=== PATIENT | female | born 1975 | race African-American/Black ===

== ENCOUNTER 2016-11-28 22:01 | Emergency (ER) | payer MEDICAID ==
[~2016-11-28] VITALS: Ht 152.4 cm; Wt 76.8 kg
[~2016-11-28 22:01] MED LIST: 1-ME1LIQ PO; HYDR-3534 PO; METH750T2 PO; METO50TA PO
[2016-11-28 22:28] VITALS: BP 144/101; PULSE 117; RESP 20; TEMP 99.3; O2SAT 100
[2016-11-28 22:37] VITALS: BP 144/101; PULSE 115; RESP 18; TEMP 99.3; O2SAT 100
[2016-11-28] MEDS ORDERED: SODIUM CHLORIDE 0.9% FLUSH 5 ML FLUSH IVF PRN (22:45)
--- NOTE | 2016-11-28 22:46 | PD ---
HPI Chief Complaint: Cold / Flu Symptoms Time Seen by Provider: 22:35 Travel History International Travel<30 days: No Contact w/Intl Traveler<30days: No Traveled to known affect area: No History of Present Illness HPI The patient is a 41-year-old female that complains of left-sided sharp, pleuritic chest pain, generalized myalgias, global headache and nonproductive cough for 3 days. She denies any sore throat or ear pain. She has had nausea and vomiting without diarrhea. She states she has had a partial hysterectomy and cannot be . PFSH Past Medical History Asthma: Yes Blood Disorders: No Cardiovascular Problems: Yes Diabetes: No Diminished Hearing: No Hypertension: Yes Reproductive: Yes (ENDOMETRIOSIS) Respiratory: Yes Immunizations Current: No Pneumonia: Yes ?: Not Menopausal: Yes : 3 Para: 3 Ovarian Cysts: Yes Dilation and Curettage (D&C): Yes Tubal Ligation: Yes Past Surgical History Section: Yes (X 2) Gynecologic Surgery: Yes (OVARIAN CYST REMOVED) Hysterectomy: Yes Social History Alcohol Use: No Tobacco Use: No Substance Use: No Allergies-Medications (Allergen,Severity, Reaction): Coded Allergies: Ibuprofen (Unverified Allergy, Intermediate, RASH/HIVES, 11/28/16) Reported Meds & Prescriptions Reported Meds & Active Scripts Active Reported Amlodipine-Atorvastatin 10-10 Mg Tab 1 Tab PO DAILY Metoprolol Tartrate 50 Mg Tab 50 Mg PO BID Review of Systems Except as stated in HPI: all other systems reviewed are Neg Physical Exam Narrative GENERAL: The patient is alert, moderately dehydrated appearing in no respiratory distress. Her vital signs show temperature 99.3 with a heart rate of 117 and blood pressure 144/101. Oximetry is 100% and respirations are 20. SKIN: Warm and dry. No skin rashes noted. HEAD: Atraumatic. Normocephalic. EYES: Pupils equal and round. No scleral icterus. No injection or drainage. ENT: No nasal bleeding or discharge. Mucous membranes pink and moist. NECK: Trachea midline. No JVD. CARDIOVASCULAR: Regular rate and rhythm. No murmur appreciated. RESPIRATORY: No accessory muscle use. Clear to auscultation. Breath sounds equal bilaterally. GASTROINTESTINAL: Abdomen soft, non-tender, nondistended. Hepatic and splenic margins not palpable. No guarding or rebound is present. MUSCULOSKELETAL: No obvious deformities. No clubbing. No cyanosis. No edema. NEUROLOGICAL: Awake and alert. No obvious cranial nerve deficits. Motor grossly within normal limits. Normal speech. PSYCHIATRIC: Appropriate mood and affect; insight and judgment normal. Data Data Last Documented VS Vital Signs Date Time Temp Pulse Resp B/P Pulse Ox O2 Delivery O2 Flow Rate FiO2 11/28/16 23:43 109 18 142/87 97 Room Air 11/28/16 23:11 97.7 Orders Basic Metabolic Panel (Bmp) (11/28/16 22:35) Complete Blood Count With Diff (11/28/16 22:35) Influenzae A/B Antigen (11/28/16 22:35) Chest, Pa & Lat (11/28/16 22:35) Sodium Chloride 0.9% Flush (Ns Flush) (11/28/16 22:45) Urinalysis - C+S If Indicated (11/28/16 22:37) Ondansetron Inj (Zofran Inj) (11/28/16 23:15) Labs Laboratory Tests Test 11/28/16 23:05 White Blood Count 7.6 TH/MM3 Red Blood Count 4.55 MIL/MM3 Hemoglobin 13.6 GM/DL Hematocrit 39.6 % Mean Corpuscular Volume 86.9 FL Mean Corpuscular Hemoglobin 30.0 PG Mean Corpuscular Hemoglobin 34.5 % Concent Red Cell Distribution Width 13.0 % Platelet Count 271 TH/MM3 Mean Platelet Volume 7.9 FL Neutrophils (%) (Auto) 73.5 % Lymphocytes (%) (Auto) 12.2 % Monocytes (%) (Auto) 6.7 % Eosinophils (%) (Auto) 3.8 % Basophils (%) (Auto) 3.8 % Neutrophils # (Auto) 5.6 TH/MM3 Lymphocytes # (Auto) 0.9 TH/MM3 Monocytes # (Auto) 0.5 TH/MM3 Eosinophils # (Auto) 0.3 TH/MM3 Basophils # (Auto) 0.3 TH/MM3 CBC Comment DIFF FINAL Differential Comment Urine Color STRAW Urine Turbidity CLEAR Urine pH 6.0 Urine Specific [place] 1.007 Urine Protein NEG mg/dL Urine Glucose (UA) NEG mg/dL Urine Ketones NEG mg/dL Urine Occult Blood SMALL Urine Nitrite NEG Urine Bilirubin NEG Urine Leukocyte Esterase NEG Urine RBC 0-3 /hpf Urine Squamous Epithelial 0-5 /hpf Cells Microscopic Urinalysis Comment CULT NOT INDICATED Sodium Level 142 MEQ/L Potassium Level 4.2 MEQ/L Chloride Level 105 MEQ/L Carbon Dioxide Level 27.7 MEQ/L Anion Gap 9 MEQ/L Blood Urea Nitrogen 13 MG/DL Creatinine 0.84 MG/DL Estimat Glomerular Filtration 91 ML/MIN Rate Random Glucose 105 MG/DL Calcium Level 8.8 MG/DL MDM Medical Decision Making Medical Screen Exam Complete: Yes Emergency Medical Condition: Yes Medical Record Reviewed: Yes Interpretation(s) The influenza A/B antigen is negative for flu a and flu B antigen. The urinalysis is normal and culture is not indicated. The chest x-ray shows no acute disease. The CBC is normal except for 74% neutrophils. The basic metabolic profile is normal. Differential Diagnosis Viral syndrome, flu syndrome, pneumonia, bronchitis, urinary tract infection, electrolyte disorder, anemia, renal insufficiency, hypo-/hyperglycemia Narrative Course The patient appears to have a viral syndrome. Plan: The patient be given Motrin 600 mg 3 times daily and a 6 day work excuse. She is to follow-up with her primary care physician. Diagnosis Primary Impression: Viral syndrome Additional Instructions: Take the Motrin regularly, 1 tablet 3 times daily for the headache and aches and pains and fever. Follow-up this week with your primary care physician. Med/Other Pt SpecificInfo: Prescription(s) given Scripts Ibuprofen 600 Mg [id number] Mg PO TID #45 TAB Ref 0 Prov:Jesus Briseno MD 11/28/16 Disposition: 01 DISCHARGE HOME Condition: Stable Jesus Briseno MD Nov 28, 2016 22:46
--- NOTE | 2016-11-28 23:01 | RADHPO ---
EXAM DATE/TIME: 11/28/2016 22:45 [facility] COMPARISON: No previous studies available for comparison. INDICATIONS : Cough and shortness of breath. MEDICAL HISTORY : Hypertension. Asthma. SURGICAL HISTORY : None. ENCOUNTER: Initial ACUITY: 1 day PAIN SCORE: 0/10 LOCATION: Bilateral chest FINDINGS: PA and lateral views of the chest demonstrate the lungs to be symmetrically aerated without evidence of mass, infiltrate or effusion. The cardiomediastinal contours are unremarkable. Osseous structure s are intact. CONCLUSION: No acute disease. Carlos Campbell MD on November 28, 2016 at 23:00 Board Certified Radiologist. This report was verified electronically.
[2016-11-28 23:11] VITALS: TEMP 97.7
[2016-11-28] MEDS ORDERED: ONDANSETRON HCL 4 MG/2 ML VIAL IV ONE (23:15)
[2016-11-28 23:20] LABS: AUTOMATED NEUTROPHIL # 5.6 TH/MM3 (1.8-7.7); BASOPHIL # 0.3 TH/MM3 (0-0.2); BASOPHIL % 3.8 % (0.0-2.0); EOSINOPHIL # 0.3 TH/MM3 (0-0.4); EOSINOPHIL % 3.8 % (0.0-4.0); HEMATOCRIT 39.6 % (35.0-46.0); HEMO FLAGS DIFF FINAL; LYMPH % 12.2 % (9.0-44.0); LYMPHOCYTE # 0.9 TH/MM3 (1.0-4.8); MEAN CELL VOLUME 86.9 FL (80.0-100.0); MEAN CORPUSCULAR HGB CONC 34.5 % (32.0-36.0); MONO % 6.7 % (0.0-8.0); NEUT % 73.5 % (16.0-70.0); PLATELET COUNT 271 TH/MM3 (150-450); RED BLOOD COUNT 4.55 MIL/MM3 (4.00-5.30); WHITE BLOOD COUNT 7.6 TH/MM3 (4.0-11.0)
[2016-11-28 23:21] LABS: BLOOD, URINE SMALL (NEG); GLUCOSE,URINE NEG (NEG); KETONE, URINE NEG (NEG); NITRITE,URINE NEG (NEG)
[2016-11-28 23:27] LABS: BICARBONATE 27.7 MEQ/L (21.0-32.0)
[2016-11-28 23:31] LABS: URINE COLOR STRAW (YELLW/STRAW)
[2016-11-28] MEDS ORDERED: METO50TA PO (23:32)
[2016-11-28] MEDS ORDERED: AMLO1TAB34 PO (23:32)
[2016-11-28 23:33] LABS: COMMENT (UR) CULT NOT INDICATED; CULTURE IF INDICATED CULT NOT INDICATED; RBC, URINE 0-3 /hpf (0-3); SQUAMOUS EPITHELIAL CELL URINE 0-5 /hpf (0-5)
[2016-11-28 23:35] LABS: POTASSIUM 4.2 MEQ/L (3.5-5.1)
[2016-11-28 23:43] VITALS: BP 142/87; PULSE 109; RESP 18; O2SAT 97
[2016-11-28] MEDS ORDERED: IBUP-232 PO (23:55)
== END 2016-11-29 00:11 | disposition home or self-care (01) ==
LOC: PHED 22:01
DX: B34.9 Viral infection, unspecified (principal); I10 Essential (primary) hypertension
CPT/HCPCS: 71020; 80048; 81001; 85025; 87804; 96374; 99284; J2405

== ENCOUNTER 2016-12-03 17:42 | Emergency (ER) | payer MEDICAID ==
[~2016-12-03] VITALS: Ht 152.4 cm; Wt 77.0 kg
[~2016-12-03 17:42] MED LIST changes: -1-ME1LIQ PO; +AMLO1TAB34 PO; -HYDR-3534 PO; +IBUP-232 PO; -METH750T2 PO
[2016-12-03 17:44] VITALS: BP 143/98; PULSE 111; RESP 16; TEMP 98.8; O2SAT 100
[2016-12-03] MEDS ORDERED: SODIUM CHLOR 0.9% 1000 ML INJ 1,000 ML IV SCH (18:40)
[2016-12-03] MEDS ORDERED: FAMOTIDINE 20 MG/2 ML VIAL IV PUSH ONE (18:45)
--- NOTE | 2016-12-03 18:45 | PD ---
HPI Chief Complaint: Pain: Acute or Chronic Time Seen by Provider: 18:41 Travel History International Travel<30 days: No Contact w/Intl Traveler<30days: No Traveled to known affect area: No History of Present Illness HPI Patient is a 41-year-old female with chief complaint of ENT/URI symptoms with nausea, vomiting and muscle aches. She states that she was seen 5 days ago at the onset of symptoms and was diagnosed with viral syndrome. She states that the sore throat has resolved and she has intermittent nasal congestion and a dry cough, occasional white sputum production. She states fever broke 2 days ago and she denies chest pain, wheezing and dyspnea. She states that she middle intermittently has diffuse abdominal discomfort and has had nausea and vomiting, 9 episodes since yesterday. No hematemesis. She denies constipation or diarrhea. She states she has had reduced oral intake secondary to nausea. She states she has had some diffuse muscle aches, worse in her thighs. She denies weakness and paresthesias. She endorses fatigue. Denies secondary to hysterectomy. PFSH Past Medical History Hx Anticoagulant Therapy: No Asthma: Yes Blood Disorders: No Cardiovascular Problems: Yes (HTN) Diabetes: No Diminished Hearing: No Hypertension: Yes Reproductive: Yes (ENDOMETRIOSIS) Respiratory: Yes Immunizations Current: Yes Pneumonia: Yes Influenza Vaccination: No ?: Not Menopausal: Yes : 3 Para: 3 Ovarian Cysts: Yes Dilation and Curettage (D&C): Yes Tubal Ligation: Yes Past Surgical History Section: Yes (X 2) Gynecologic Surgery: Yes (OVARIAN CYST REMOVED) Hysterectomy: Yes Social History Alcohol Use: No Tobacco Use: No Substance Use: No Allergies-Medications (Allergen,Severity, Reaction): Coded Allergies: Ibuprofen (Unverified Allergy, Intermediate, RASH/HIVES, 12/03/16) Reported Meds & Prescriptions Reported Meds & Active Scripts Active Zofran Odt (Ondansetron Odt) 4 Mg Tab 4 Mg SL Q8HR PRN Ibuprofen 600 Mg Tab 600 Mg PO TID Reported Metoprolol Tartrate 50 Mg Tab 50 Mg PO BID Amlodipine-Atorvastatin 10-10 Mg Tab 1 Tab PO DAILY Review of Systems Except as stated in HPI: all other systems reviewed are Neg Physical Exam Narrative GENERAL: Well-developed and well-nourished adult female in no acute distress. SKIN: Warm and dry. Slightly decreased turgor without tenting. HEAD: Normocephalic and atraumatic. EYES: PERRL bilaterally, 5mm. EOMI bilaterally. No injection or icterus present. No proptosis. Lids without edema or erythema. ENT: Nasal mucosa erythematous and edematous without discharge, septum intact and midline. Buccal mucosa pink and slightly dry. Oropharynx free of erythema, tonsillar hypertrophy, masses, swelling, asymmetry and exudates. Uvula midline and airway patent. NECK: Supple, no meningeal signs. Trachea midline, no JVD. No cervical or facial lymphadenopathy. CARDIOVASCULAR: Mild tachycardia rate 108 with regular rhythm without murmurs, rubs, clicks or gallops. Radial and posterior tibial pulses 2+ bilaterally. No pedal edema. RESPIRATORY: Clear to auscultation bilaterally with symmetrical rise and fall, no distress or use of accessory muscles. GASTROINTESTINAL: Non-tender, non-distended. Normal bowel sounds all 4 quadrants. No masses or organomegaly present. MUSCULOSKELETAL: No tenderness or palpation of the bilateral shoulders, arms, forearms, thighs and calves. No gait disturbances. Patient freely moving all four extremities spontaneously. Extremities without clubbing, cyanosis, or edema. No obvious deformities. NEUROLOGIC: CN II-XII grossly intact. Awake and alert. Motor grossly within normal limits. Normal speech. PSYCHIATRIC: Appropriate mood and affect; insight and judgment normal. Data Data Last Documented VS Vital Signs Date Time Temp Pulse Resp B/P Pulse Ox O2 Delivery O2 Flow Rate FiO2 12/03/16 18:57 18 98 Room Air 12/03/16 17:44 98.8 111 143/98 Orders Beta Hcg (Quant/Titer) (12/03/16 18:40) Complete Blood Count With Diff (12/03/16 18:40) Comprehensive Metabolic Panel (12/03/16 18:40) Lipase (12/03/16 18:40) Urinalysis - C+S If Indicated (12/03/16 18:40) Iv Access Insert/Monitor (12/03/16 18:40) Ecg Monitoring (12/03/16 18:40) Oximetry (12/03/16 18:40) Sodium Chlor 0.9% 1000 Ml Inj (Ns 1000 M (12/03/16 18:40) Famotidine Inj (Pepcid Inj) (12/03/16 18:45) Creatine Kinase (Cpk) (12/03/16 18:40) Magnesium (Mg) (12/03/16 18:40) CKMB (12/03/16 18:50) CKMB% (12/03/16 18:50) Calcium Carbonate Chew (Tums Chew) (12/03/16 19:45) Labs Laboratory Tests Test 12/03/16 12/03/16 18:45 18:50 Urine Color YELLOW Urine Turbidity CLEAR Urine pH 5.5 Urine Specific [place] 1.030 Urine Protein NEG mg/dL Urine Glucose (UA) NEG mg/dL Urine Ketones NEG mg/dL Urine Occult Blood MOD Urine Nitrite NEG Urine Bilirubin NEG Urine Leukocyte Esterase NEG Urine RBC 3-5 /hpf Urine WBC 0-2 /hpf Urine Squamous Epithelial 6-8 /hpf Cells Urine Bacteria NONE /hpf Microscopic Urinalysis Comment CULT NOT INDICATED White Blood Count 7.2 TH/MM3 Red Blood Count 4.99 MIL/MM3 Hemoglobin 14.4 GM/DL Hematocrit 44.1 % Mean Corpuscular Volume 88.3 FL Mean Corpuscular Hemoglobin 28.9 PG Mean Corpuscular Hemoglobin 32.8 % Concent Red Cell Distribution Width 13.3 % Platelet Count 260 TH/MM3 Mean Platelet Volume 7.7 FL Neutrophils (%) (Auto) 37.2 % Lymphocytes (%) (Auto) 46.3 % Monocytes (%) (Auto) 7.8 % Eosinophils (%) (Auto) 7.8 % Basophils (%) (Auto) 0.9 % Neutrophils # (Auto) 2.7 TH/MM3 Lymphocytes # (Auto) 3.2 TH/MM3 Monocytes # (Auto) 0.6 TH/MM3 Eosinophils # (Auto) 0.6 TH/MM3 Basophils # (Auto) 0.1 TH/MM3 CBC Comment DIFF FINAL Differential Comment Sodium Level 144 MEQ/L Potassium Level 3.7 MEQ/L Chloride Level 107 MEQ/L Carbon Dioxide Level 29.2 MEQ/L Anion Gap 8 MEQ/L Blood Urea Nitrogen 20 MG/DL Creatinine 0.88 MG/DL Estimat Glomerular Filtration 86 ML/MIN Rate Random Glucose 101 MG/DL Calcium Level 8.3 MG/DL Magnesium Level 2.0 MG/DL Total Bilirubin 0.2 MG/DL Aspartate Amino Transf 17 U/L (AST/SGOT) Alanine Aminotransferase 17 U/L (ALT/SGPT) Alkaline Phosphatase 85 U/L Total Creatine Kinase 274 U/L Creatine Kinase MB 2.5 NG/ML Creatine Kinase MB % 0.9 % Total Protein 6.7 GM/DL Albumin 2.9 GM/DL Lipase 240 U/L Human Chorionic Gonadotropin, LESS THAN 1 Quant MIU/ML [facility] Medical Decision Making Medical Screen Exam Complete: Yes Emergency Medical Condition: Yes Differential Diagnosis Dehydration versus electrolyte disturbance versus viral syndrome versus rhabdomyolysis Narrative Course Patient is a 41-year-old afebrile nontoxic-appearing female with continuing nausea, vomiting and increasing myalgias likely secondary to viral syndrome. Her ENT/URI symptoms have been improving. Lungs are clear to auscultation and there is no evidence of bacterial foci on exam. Belly is benign and she has no diarrhea. Reports significant episodes of emesis since yesterday and reduced oral intake. She appears slightly volume depleted on exam. Her muscle aches are likely secondary to both the viral syndrome and possible dehydration and electrolyte disturbance. Patient was given Zofran, H2 antagonist, 1 L normal saline bolus ordered labs including magnesium and CPK. Patient reports feeling much better and resolution of her nausea. CBC shows WBC 7.2 with a mild increase in her lymphocytes, likely secondary to viral syndrome. Urinalysis shows moderate blood with 6-8 epithelial cells. White count shows BUN 20, creatinine 0.88, calcium 8.3, CK 274, albumin 2.9. Patient was given calcium carbonate 1 g chews. Do not believe this slight greasing calcium because her myalgias. There likely secondary to the viral syndrome. She is afebrile, nontoxic reports improving ENT and respiratory symptoms will encourage fluids and give Zofran and believe this will likely resolve in 2-3 days.See discharge paperwork for further instructions. The plan was discussed with the patient who acknowledged their understanding and agreement. Reinforced the follow-up with primary care is critically important. Patient instructed on emergent conditions that should prompt return to ED. Diagnosis Primary Impression: Viral syndrome Additional Impression: Myalgia Patient Instructions: General Instructions, Viral Syndrome (ED) Additional Instructions: Take medication as prescribed OTC Mucinex, cough suppressants, and decongestants as needed OTC Tylenol or Ibuprofen for fever and discomfort Drink lots of fluid to help clear mucous/drainage and stay hydrated Follow up with PCP in 2 days Return to the ED for any acute worsening of symptoms Med/Other Pt SpecificInfo: Prescription(s) given Scripts Ondansetron Odt (Zofran Odt)4 Mg Tab4 Mg SL Q8HR PRN (Nausea/Vomiting) #12 TAB Prov:Harley Charles MD 12/03/16 Disposition: 01 DISCHARGE HOME Condition: Stable Damir Daniel III Dec 03, 2016 18:45
[2016-12-03 18:57] VITALS: RESP 18; O2SAT 98
[2016-12-03 19:02] LABS: GLUCOSE,URINE NEG (NEG); KETONE, URINE NEG (NEG); NITRITE,URINE NEG (NEG); PH, URINE 5.5 (5.0-8.5)
[2016-12-03 19:03] LABS: AUTOMATED NEUTROPHIL # 2.7 TH/MM3 (1.8-7.7); BASOPHIL # 0.1 TH/MM3 (0-0.2); BASOPHIL % 0.9 % (0.0-2.0); EOSINOPHIL # 0.6 TH/MM3 (0-0.4); EOSINOPHIL % 7.8 % (0.0-4.0); HEMATOCRIT 44.1 % (35.0-46.0); HEMO FLAGS DIFF FINAL; LYMPH % 46.3 % (9.0-44.0); LYMPHOCYTE # 3.2 TH/MM3 (1.0-4.8); MEAN CELL VOLUME 88.3 FL (80.0-100.0); MEAN CORPUSCULAR HEMOGLOBIN 28.9 PG (27.0-34.0); MEAN CORPUSCULAR HGB CONC 32.8 % (32.0-36.0); MONO % 7.8 % (0.0-8.0); NEUT % 37.2 % (16.0-70.0); PLATELET COUNT 260 TH/MM3 (150-450); RED BLOOD COUNT 4.99 MIL/MM3 (4.00-5.30); RED CELL DISTRIBUTION WIDTH 13.3 % (11.6-17.2); WHITE BLOOD COUNT 7.2 TH/MM3 (4.0-11.0)
[2016-12-03 19:08] LABS: BLOOD, URINE MOD (NEG); URINE COLOR YELLOW (YELLW/STRAW)
[2016-12-03 19:10] LABS: COMMENT (UR) CULT NOT INDICATED; CULTURE IF INDICATED CULT NOT INDICATED; WBC, URINE 0-2 /hpf (0-5)
[2016-12-03 19:16] LABS: CHLORIDE 107 MEQ/L (98-107); POTASSIUM 3.7 MEQ/L (3.5-5.1); SODIUM (NA) 144 MEQ/L (136-145)
[2016-12-03 19:20] LABS: ANION GAP 8 MEQ/L (5-15); BICARBONATE 29.2 MEQ/L (21.0-32.0); BLOOD UREA NITROGEN 20 MG/DL (7-18)
[2016-12-03 19:23] LABS: ALT (GPT) 17 U/L (10-53); AST (GOT) 17 U/L (15-37); GLOMERULAR FILTRATION RATE 86 ML/MIN (>89)
[2016-12-03 19:24] LABS: TOTAL BILIRUBIN ADULT 0.2 MG/DL (0.2-1.0)
[2016-12-03 19:26] LABS: ALKALINE PHOSPHATASE 85 U/L (45-117); CREATINE KINASE 274 U/L (26-192)
[2016-12-03 19:28] LABS: BETA HCG QUANT LESS THAN 1 MIU/ML (0-5)
[2016-12-03 19:38] LABS: CKMB 2.5 NG/ML (0.5-3.6)
[2016-12-03] MEDS ORDERED: ZOFR4TAB3 SL (19:39)
[2016-12-03] MEDS ORDERED: CALCIUM CARBONATE 500 MG CHEWABLE TAB CHEW ONE (19:45)
== END 2016-12-03 20:18 | disposition home or self-care (01) ==
LOC: PHEFT 17:42
DX: B34.9 Viral infection, unspecified (principal); M79.1 Myalgia; J45.909 Unspecified asthma, uncomplicated; I10 Essential (primary) hypertension
CPT/HCPCS: 80053; 81001; 82550; 82552; 83690; 83735; 84702; 85025; 96361; 96374; 99283; J7030

== ENCOUNTER 2017-02-01 00:48 | Observation (INO) | payer SELFPAY ==
[2017-02-01] VITALS (7 sets, daily range): BP systolic 146–155; BP diastolic 88–102; PULSE 75–89; RESP 15–18; TEMP 98.2; O2SAT 98–99
[~2017-02-01 00:48] MED LIST changes: +ZOFR4TAB3 SL
[2017-02-01 02:18] LABS: AUTOMATED NEUTROPHIL # 3.2 TH/MM3 (1.8-7.7); BASOPHIL # 0.1 TH/MM3 (0-0.2); BASOPHIL % 0.7 % (0.0-2.0); EOSINOPHIL # 0.6 TH/MM3 (0-0.4); EOSINOPHIL % 7.4 % (0.0-4.0); HEMATOCRIT 39.4 % (35.0-46.0); HEMO FLAGS DIFF FINAL; LYMPH % 43.8 % (9.0-44.0); LYMPHOCYTE # 3.4 TH/MM3 (1.0-4.8); MEAN CELL VOLUME 88.1 FL (80.0-100.0); MEAN CORPUSCULAR HEMOGLOBIN 29.4 PG (27.0-34.0); MEAN CORPUSCULAR HGB CONC 33.4 % (32.0-36.0); MONO % 6.7 % (0.0-8.0); NEUT % 41.4 % (16.0-70.0); PLATELET COUNT 278 TH/MM3 (150-450); RED BLOOD COUNT 4.48 MIL/MM3 (4.00-5.30); RED CELL DISTRIBUTION WIDTH 13.7 % (11.6-17.2); WHITE BLOOD COUNT 7.8 TH/MM3 (4.0-11.0)
[2017-02-01 02:22] LABS: BLOOD, URINE SMALL (NEG); GLUCOSE,URINE NEG (NEG); KETONE, URINE NEG (NEG); NITRITE,URINE NEG (NEG); PH, URINE 6.5 (5.0-8.5)
[2017-02-01 02:26] LABS: CHLORIDE 107 MEQ/L (98-107); SODIUM (NA) 141 MEQ/L (136-145)
[2017-02-01 02:29] LABS: ANION GAP 8 MEQ/L (5-15); BICARBONATE 26.4 MEQ/L (21.0-32.0)
[2017-02-01 02:30] LABS: BLOOD UREA NITROGEN 20 MG/DL (7-18)
--- NOTE | 2017-02-01 02:31 | PD ---
HPI Chief Complaint: Chest Pain Time Seen by Provider: 02:27 Travel History International Travel<30 days: No Contact w/Intl Traveler<30days: No Traveled to known affect area: No History of Present Illness HPI 41-year-old female presents to the emergency department by private transportation for complaint of headache since 3:30 PM and chest discomfort with tingling in the left upper extremity and left lower extremity intermittently since 11 PM. Patient has history of headaches and history of hypertension. Patient occasionally has chest pain but is simply right-sided. Patient denies known history of CAD or dyslipidemia or diabetes but does have hypertension. Patient has family history of hypertension affecting her sister and her father. Patient denies any upper or lower extremity weakness. Patient denies any injury or fall. Patient states symptoms have improved since arriving to the emergency department. Patient took no medications prior to arrival to the emergency Department. No report of visual disturbance speech disturbance change in mentation palpitations sweats nausea vomiting abdominal pain flank pain or recent febrile illness. Patient denies . Pain 5/10 in intensity. Headache is not sudden onset, worst ever, or thunderclap; no family history of intracerebral hemorrhage or subarachnoid hemorrhage. No injury or fall. No febrile or respiratory illness. PFSH Past Medical History Narrative Medical Asthma hypertension endometriosis D&C tubal ligation and ovarian cysts C- section ovarian cystectomy and hysterectomy no tobacco use; family history hypertension; nursing notes reviewed Hx Anticoagulant Therapy: No Asthma: Yes Blood Disorders: No Cardiovascular Problems: Yes (HTN) Diabetes: No Diminished Hearing: No Hypertension: Yes Reproductive: Yes (ENDOMETRIOSIS) Respiratory: Yes Immunizations Current: Yes Pneumonia: Yes ?: Unknown Menopausal: Yes : 3 Para: 3 Ovarian Cysts: Yes Dilation and Curettage (D&C): Yes Tubal Ligation: Yes Past Surgical History Section: Yes (X 2) Gynecologic Surgery: Yes (OVARIAN CYST REMOVED) Hysterectomy: Yes Social History Alcohol Use: No Tobacco Use: No Substance Use: No Allergies-Medications (Allergen,Severity, Reaction): Coded Allergies: Ibuprofen (Verified Allergy, Intermediate, RASH/HIVES, 02/01/17) Reported Meds & Prescriptions Reported Meds & Active Scripts Active Reported Metoprolol Tartrate 50 Mg Tab 50 Mg PO BID Amlodipine-Atorvastatin 10-10 Mg Tab 1 Tab PO DAILY Review of Systems Except as stated in HPI: all other systems reviewed are Neg General / Constitutional: No: Fever, Chills Eyes: No: Visual changes HENT: Positive: Headaches, No: Neck Stiffness, Neck Pain Cardiovascular: Positive: Chest Pain or Discomfort, No: Diaphoresis, Dyspnea on exertion, Edema Respiratory: No: Cough, Shortness of Breath, Wheezing Gastrointestinal: No: Nausea, Vomiting Genitourinary: No: Dysuria, Flank Pain Musculoskeletal: No: Myalgias, Arthralgias, Limited ROM, Pain Skin: No Rash Neurologic: Positive: Paresthesia (left), No: Weakness, Dizziness, Syncope, Focal Abnormalities, Coordination Problem Psychiatric: Positive: Anxiety Endocrine: No: Heat Intolerance Hematologic/Lymphatic: No: Easy Bruising Physical Exam Narrative GENERAL: Well-developed well-nourished female in no acute distress no respiratory distress; GCS is 15; NIHSS: 0 SKIN: Warm and dry. HEAD: Atraumatic. Normocephalic. EYES: Pupils equal and round. No scleral icterus. No injection or drainage. ENT: No nasal bleeding or discharge. Mucous membranes pink and moist. NECK: Trachea midline. No JVD. Supple no nuchal rigidity no meningismus no Kernig's or Brudzinski. CARDIOVASCULAR: Regular rate and rhythm. RESPIRATORY: No accessory muscle use. Clear to auscultation. Breath sounds equal bilaterally. GASTROINTESTINAL: Abdomen soft, non-tender, nondistended. Hepatic and splenic margins not palpable. MUSCULOSKELETAL: Extremities without clubbing, cyanosis, or edema. No obvious deformities. NEUROLOGICAL: Awake and alert. No obvious cranial nerve deficits. Motor grossly within normal limits. Five out of 5 muscle strength in the arms and legs. No limb ataxia. No pronator drift. DTRs 2+ and symmetric. Sensory exam intact. Normal speech. PSYCHIATRIC: Appropriate mood and affect; insight and judgment normal. Data Data Last Documented VS Vital Signs Date Time Temp Pulse Resp B/P Pulse Ox O2 Delivery O2 Flow Rate FiO2 02/01/17 04:12 78 16 146/94 Room Air 02/01/17 03:30 99 02/01/17 01:00 98.2 Orders Ed Urine Pregnancytest Poc (02/01/17 01:30) Complete Blood Count With Diff (02/01/17 02:06) Comprehensive Metabolic Panel (02/01/17 02:06) Troponin I (02/01/17 02:06) Urinalysis - C+S If Indicated (02/01/17 02:06) Ct Brain W/O Iv Contrast(Rout) (02/01/17 ) Chest, Single Ap (02/01/17 ) Act Partial Throm Time (Ptt) (02/01/17 02:31) Prothrombin Time / Inr (Pt) (02/01/17 02:31) Cta Brain W Iv Contrast W 3d (02/01/17 ) Cta Neck W Iv Contrast W 3d (02/01/17 04:44) Ckmb (Isoenzyme) Profile (02/01/17 04:57) Troponin I (02/01/17 04:57) Iohexol 350 Inj (Omnipaque 350 Inj) (02/01/17 06:06) CKMB (02/01/17 05:25) CKMB% (02/01/17 05:25) Admit Order (Ed Use Only) (02/01/17 ) ^ Saline Lock (02/01/17 06:53) Resp Oxygen Julio C Titrat 1-4 L (02/01/17 ) ^ Notify Dr: Other (02/01/17 06:53) Sodium Chloride 0.9% Flush (Ns Flush) (02/01/17 09:00) Sodium Chloride 0.9% Flush (Ns Flush) (02/01/17 07:00) Activity Bed Rest With Brp (02/01/17 06:53) Vital Signs (Adult) Q4H (02/01/17 06:53) Cardiac Rhythm .As Directed (02/01/17 06:53) ^ Notify Dr: Other .PRN (02/01/17 06:53) ^ Notify Dr. Parameters (02/01/17 06:53) Resp Oxygen Nasal Cannula (02/01/17 ) Ckmb (Isoenzyme) Profile (02/01/17 08:30) Ckmb (Isoenzyme) Profile (02/01/17 11:30) Troponin I (02/01/17 08:30) Troponin I (02/01/17 11:30) Electrocardiogram (02/01/17 08:30) Electrocardiogram (02/01/17 11:30) ^ Obtain (02/01/17 06:53) Sodium Chloride 0.9% Flush (Ns Flush) (02/01/17 07:00) Sodium Chloride 0.9% Flush (Ns Flush) (02/01/17 09:00) Field Human Resources Manager / Telemetry [id number] (02/01/17 06:53) Labs Laboratory Tests Test 02/01/17 02/01/17 02:00 05:25 White Blood Count 7.8 TH/MM3 Red Blood Count 4.48 MIL/MM3 Hemoglobin 13.1 GM/DL Hematocrit 39.4 % Mean Corpuscular Volume 88.1 FL Mean Corpuscular Hemoglobin 29.4 PG Mean Corpuscular Hemoglobin 33.4 % Concent Red Cell Distribution Width 13.7 % Platelet Count 278 TH/MM3 Mean Platelet Volume 8.1 FL Neutrophils (%) (Auto) 41.4 % Lymphocytes (%) (Auto) 43.8 % Monocytes (%) (Auto) 6.7 % Eosinophils (%) (Auto) 7.4 % Basophils (%) (Auto) 0.7 % Neutrophils # (Auto) 3.2 TH/MM3 Lymphocytes # (Auto) 3.4 TH/MM3 Monocytes # (Auto) 0.5 TH/MM3 Eosinophils # (Auto) 0.6 TH/MM3 Basophils # (Auto) 0.1 TH/MM3 CBC Comment DIFF FINAL Differential Comment Prothrombin Time 10.3 SEC Prothromb Time International 0.9 RATIO Ratio Activated Partial 27.7 SEC Thromboplast Time Urine Color STRAW Urine Turbidity CLEAR Urine pH 6.5 Urine Specific [place] 1.010 Urine Protein NEG mg/dL Urine Glucose (UA) NEG mg/dL Urine Ketones NEG mg/dL Urine Occult Blood SMALL Urine Nitrite NEG Urine Bilirubin NEG Urine Leukocyte Esterase NEG Urine RBC 0-3 /hpf Urine Squamous Epithelial 0-5 /hpf Cells Microscopic Urinalysis Comment CULT NOT INDICATED Sodium Level 141 MEQ/L Potassium Level 4.0 MEQ/L Chloride Level 107 MEQ/L Carbon Dioxide Level 26.4 MEQ/L Anion Gap 8 MEQ/L Blood Urea Nitrogen 20 MG/DL Creatinine 0.99 MG/DL Estimat Glomerular Filtration 75 ML/MIN Rate Random Glucose 106 MG/DL Calcium Level 8.7 MG/DL Total Bilirubin 0.2 MG/DL Aspartate Amino Transf 15 U/L (AST/SGOT) Alanine Aminotransferase 23 U/L (ALT/SGPT) Alkaline Phosphatase 119 U/L Troponin I LESS THAN 0.02 LESS THAN 0.02 NG/ML NG/ML Total Protein 7.7 GM/DL Albumin 3.5 GM/DL Total Creatine Kinase 241 U/L Creatine Kinase MB 1.1 NG/ML Creatine Kinase MB % 0.5 % MDM Medical Decision Making Medical Screen Exam Complete: Yes Emergency Medical Condition: Yes Medical Record Reviewed: Yes Interpretation(s) CBC was automated differential: Values in normal range Complete metabolic panel otherwise grossly normal range Troponin I EKG normal sinus rhythm rate [address] elevation or injury pattern change Differential Diagnosis Chest pain, ACS, ID, uncontrolled hypertension, cephalgia, TIA, CVA, cervical radiculopathy Narrative Course Patient placed on monitor technician EKG performed which reveals no acute ST elevation or injury pattern; specimens collected and sent for resulting; CT brain noncontrast ordered At 4:[address] brain noncontrast reveals linear hyperdensity right frontal lobe concerning for artifact versus very small subarachnoid hemorrhage recommend follow-up in 12-24 hours to confirm stability; patient reports headache 0/10 in intensity; chest pain 0/10 in intensity case discussed with on- call neurosurgery recommends proceeding with CTA of the brain and to be notified if consistent with subarachnoid hemorrhage otherwise observation to medicine with consult to neurosurgery. @ 06:55 discussed results of the CTA brain and CTA neck with neurosurgeon Dr. Coats does not feel patient needs to be evaluated in the hospital from a neurosurgical standpoint does recommend after patient evaluated for other issues that may require observation or hospitalization can be seen as an outpatient in his office and is to have close follow-up with Dr. Coats and to call office to schedule outpatient appointment this week. These results discussed in detail with the patient, she is aware of the need for close follow- up as an outpatient with Dr. Coats this week and to return to the emergency department before if any concerns or change in condition. Critical Care Narrative Aggregate critical care time was 40 minutes. Time to perform other separately billable procedures was not included in the critical care time. My time did not include minutes spent treating any other patients simultaneously or on activities that did not directly contribute to the patient's treatment. The services I provided to this patient were to treat and/or prevent clinically significant deterioration that could result in: acs, myocardial infarction, arrhythmia, ich, coma, I provided critical care services requiring my management, as noted below: Chart data review, documentation time, medication orders and management, vital sign assessments/reviewing monitor data, ordering and reviewing lab tests, ordering and interpreting/reviewing x-rays and diagnostic studies, care of the patient and discussion of the patient with the admitting physicians. Physician Communication Physician Communication call placed to MANUEL Coats --CTA brain --if neg obs to medicine and if positive to his service; call placed to [facility] service, discussed with Dr Rosales--[facility] HIGH WORKER; @ 06:55 discussed results of the CTA brain and CTA neck with neurosurgeon Dr. Coats does not feel patient needs to be evaluated in the hospital from a neurosurgical standpoint does recommend after patient evaluated for other issues that may require observation or hospitalization can be seen as an outpatient in his office and is to have close follow-up with Dr. Coats and to call office to schedule outpatient appointment this week. Diagnosis Primary Impression: Chest pain Qualified Code: R07.2 - Precordial pain Additional Impression: Cephalgia Qualified Code: R51 - Acute nonintractable headache, unspecified headache type Admitting Information Admitting Physician Requests: Observation Shantel Tucker MD Feb 01, 2017 02:31
[2017-02-01 02:32] LABS: ALT (GPT) 23 U/L (10-53); AST (GOT) 15 U/L (15-37)
[2017-02-01 02:33] LABS: GLOMERULAR FILTRATION RATE 75 ML/MIN (>89)
[2017-02-01 02:34] LABS: TOTAL BILIRUBIN ADULT 0.2 MG/DL (0.2-1.0)
[2017-02-01 02:35] LABS: ALKALINE PHOSPHATASE 119 U/L (45-117)
[2017-02-01 02:36] LABS: URINE COLOR STRAW (YELLW/STRAW)
[2017-02-01 02:37] LABS: COMMENT (UR) CULT NOT INDICATED; CULTURE IF INDICATED CULT NOT INDICATED; RBC, URINE 0-3 /hpf (0-3); SQUAMOUS EPITHELIAL CELL URINE 0-5 /hpf (0-5)
[2017-02-01 02:53] LABS: APTT (PATIENT) 27.7 SEC (24.3-30.1); INTERNATIONAL NORMALIZED RATIO 0.9 RATIO; PROTHROMBIN TIME - PATIENT 10.3 SEC (9.8-11.6)
--- NOTE | 2017-02-01 03:59 | RADHPO ---
EXAM DATE/TIME: 02/01/2017 02:43 [facility] COMPARISON: CT BRAIN W/O CONTRAST, August 17, 2015, 18:02. INDICATIONS : Cephalgia. Tingling in left upper extremity. RADIATION DOSE: 62.16 CTDIvol (mGy) MEDICAL HISTORY : Hypertension. SURGICAL HISTORY : None. ENCOUNTER: Initial ACUITY: 1 day PAIN SCALE: 5/10 LOCATION: cranial TECHNIQUE: Multiple contiguous axial images were obtained of the head. Using automated exposure control and adj ustment of the mA and/or kV according to patient size, radiation dose was kept as low as reasonably a chievable to obtain optimal diagnostic quality images. FINDINGS: CEREBRUM: Minimal linear hyperdensity in the right frontal lobe on image #15. No other evidence of acute intrac ranial hemorrhage. No mass effect or midline shift. Ventricles within normal limits. No evidence of a cute infarct or mass lesion. POSTERIOR FOSSA: The cerebellum and brainstem are intact. The 4th ventricle is midline. The cerebellopontine angle i s unremarkable. EXTRACRANIAL: Moderate severity bilateral ethmoid sinus partial opacification. SKULL: The calvaria is intact. No evidence of skull fracture. CONCLUSION: Linear hyperdensity in the right frontal lobe seen on a single image. Not seen on prior study. May re present artifact. Very small subarachnoid hemorrhage also in the differential diagnosis. Followup in 12-24 hours could be performed to confirm stability. Lane Vallecillo MD on February 01, 2017 at 3:53 Board Certified Radiologist. This report was verified electronically.
--- NOTE | 2017-02-01 04:01 | RADHPO ---
EXAM DATE/TIME: 02/01/2017 02:52 [facility] COMPARISON: CHEST SINGLE AP, July 12, 2016, 22:58. INDICATIONS : Chest pain. MEDICAL HISTORY : Hypertension. Asthma SURGICAL HISTORY : None. ENCOUNTER: Initial ACUITY: 1 day PAIN SCORE: 7/10 LOCATION: Bilateral chest FINDINGS: Single AP view of the chest. The lungs are clear. Cardiomediastinal silhouette within normal limits. No evidence of pleural effusion or pneumothorax. CONCLUSION: No acute cardiopulmonary disease identified. Lane Vallecillo MD on February 01, 2017 at 3:58 Board Certified Radiologist. This report was verified electronically.
[2017-02-01] MEDS ORDERED: IOHEXOL 350 MG/ML 10 ML VIAL (for RAD DIAG) IV ONE (06:06)
[2017-02-01 06:16] LABS: CREATINE KINASE 241 U/L (26-192)
--- NOTE | 2017-02-01 06:18 | RADHPO ---
EXAM DATE/TIME: 02/01/2017 04:56 [facility] COMPARISON: CT BRAIN W/O CONTRAST, February 01, 2017, 2:43. INDICATIONS : Cephalgia. Left upper extremity tingling. IV CONTRAST: 100 cc Omnipaque 350 (iohexol) IV ; Cumulative dose for multiple exams. RADIATION DOSE: 13.74 CTDIvol (mGy) ; Combined studies MEDICAL HISTORY : Hypertension. SURGICAL HISTORY : None. ENCOUNTER: Initial ACUITY: 1 day PAIN SCALE: 5/10 LOCATION: cranial TECHNIQUE: Volumetric scanning was performed using a multi-row detector CT scanner. The data was post processed with a variety of visualization algorithms including full volume maximum intensity projection, multi -planar sliding thin slab reformation, curved planar reformation, and surface rendering techniques. Using automated exposure control and adjustment of the mA and/or kV according to patient size, radiat ion dose was kept as low as reasonably achievable to obtain optimal diagnostic quality images. FINDINGS: There is excellent visualization of the major intracranial arteries out to the second-order branch ve ssels. There is no evidence for aneurysm, vessel truncation or stenosis, and no evidence for vascula r malformation. CONCLUSION: CTA of the brain within normal limits. Lane Vallecillo MD on February 01, 2017 at 6:13 Board Certified Radiologist. This report was verified electronically.
--- NOTE | 2017-02-01 06:21 | RADHPO ---
EXAM DATE/TIME: 02/01/2017 04:56 [facility] COMPARISON: No previous studies available for comparison. INDICATIONS : Cephalgia. Left upper extremity tingling. IV CONTRAST: 100 cc Omnipaque 350 (iohexol) IV ; Cumulative dose for multiple exams. RADIATION DOSE: 13.74 CTDIvol (mGy) ; Combined studies MEDICAL HISTORY : Hypertension. SURGICAL HISTORY : None. ENCOUNTER: Initial ACUITY: 1 day PAIN SCALE: 5/10 LOCATION: cranial Elevated flow velocities and ICA/CCA ratios have been found to correlate with increased degrees of vessel stenosis, calculated as percentage of diameter relative to a normal segment of distal ICA/CCA. TECHNIQUE: Volumetric scanning was performed using a multirow detector CT scanner. The data was post processed with a variety of visualization algorithms including full-volume maximum intensity projection, multip lanar sliding thin-slab reformation, curved-planar reformation, and surface-rendering techniques. Us ing automated exposure control and adjustment of the mA and/or kV according to patient size, radiatio n dose was kept as low as reasonably achievable to obtain optimal diagnostic quality images. FINDINGS: AORTIC ARCH: There is a three-vessel origin of the great vessels from the aorta. No evidence of ostial narrowing. RIGHT CAROTID: The common carotid artery is intact. The carotid bulb has a normal configuration without ulceration o r narrowing. The internal carotid artery lumen is smooth without stenosis. The external carotid puneet ry is intact. LEFT CAROTID: The common carotid artery is intact. The carotid bulb has a normal configuration without ulceration or narrowing. The internal carotid artery lumen is smooth without stenosis. The external carotid [place] is intact. VERTEBRALS: The vertebral arteries have a symmetric diameter. No stenotic lesions are seen. CONCLUSION: 1. Carotid CTA within normal limits. 2. Degenerative findings of the cervical spine noted with mild central canal narrowing at C5-6. Lane Vallecillo MD on February 01, 2017 at 6:17 Board Certified Radiologist. This report was verified electronically.
[2017-02-01 06:28] LABS: CKMB 1.1 NG/ML (0.5-3.6)
[2017-02-01] MEDS ORDERED: ONDANSETRON HCL 4 MG/2 ML VIAL IV PRN (07:00)
[2017-02-01] MEDS ORDERED: SODIUM CHLORIDE 0.9% FLUSH 5 ML FLUSH IVF PRN ×3 (07:00)
[2017-02-01] MEDS ORDERED: MORPHINE SULFATE 4 MG/ML INJ IV PUSH ONE (08:15)
[2017-02-01] MEDS ORDERED: ASPIRIN 325 MG TAB PO SCH (09:00)
[2017-02-01] MEDS ORDERED: SODIUM CHLORIDE 0.9% FLUSH 5 ML FLUSH IVF SCH ×3 (09:00)
[2017-02-01 10:06] LABS: CREATINE KINASE 259 U/L (26-192)
[2017-02-01 10:18] LABS: CKMB 1.2 NG/ML (0.5-3.6)
--- NOTE | 2017-02-01 11:58 | HHI.HP ---
[facility] Service [facility] Primary Care Physician Tremayne Rao M.D. Admission Diagnosis chest pain; cephalgia Diagnoses: (1) Chest pain Diagnosis: Principal (2) Cephalgia Diagnosis: Principal (3) Subarachnoid hemorrhage Diagnosis: Principal Chief Complaint: Headache, chest pain Travel History International Travel<30 Days: No Contact w/Intl Traveler <30 Da: No Traveled to Known Affected Are: No History of Present Illness 41-year-old female with known history of hypertension, migraine cephalgia who presented to the hospital because a headache and subsequent full chest pain. Patient states that when she got off work at 3 PM yesterday afternoon she got a sudden onset of left-sided headache in which she describes as a 10/10, worse headache she had in her life and he continued to worsen until the pain went circumferential area. Patient states that she did have some photosensitivity, no unilateral vision loss, blurred vision, weakness, facial droop, difficulty in speech, difficulty eating and swallowing food. She did have some paresthesia in the left hand and fingers. At approximately 11 PM last night she started developing left anterior chest discomfort without any radiation, nausea, vomiting, diaphoresis, shortness breath, dyspnea, lightheadedness, dizziness. Patient denies any previous cardiac workup. She indicates that she has had episodes of uncontrolled hypertension in which has caused her to have headaches in the past. Patient had evaluation done emergency department and CT scan did indicate a possible artifact versus very small subarachnoid bleed. ER physician discussed with neurosurgery who recommended a CTA of the brain and that was negative the patient in follow-up in outpatient setting. CTA was negative and it was recommended by ER physician that patient be observed and chest pain center for further evaluation management. Review of Systems Constitutional: DENIES: Diaphoretic episodes, Fatigue, Fever, Weight gain, Weight loss, Chills, Dizziness, Change in appetite, Night Sweats Eyes: COMPLAINS OF: Photosensitivity, DENIES: Blurred vision, Diplopia, Eye inflammation, Eye pain, Vision loss, Double Vision Ears, nose, mouth, throat: DENIES: Vertigo, Nasal discharge, Throat pain, Ear Pain, Running Nose, Toothache Respiratory: DENIES: Apneas, Cough, Snoring, Wheezing, Hemoptysis, Sputum production, Shortness of breath Cardiovascular: COMPLAINS OF: Chest pain, DENIES: Palpitations, Syncope, Dyspnea on Exertion, PND, Lower Extremity Edema, Orthopnea, Claudication Gastrointestinal: DENIES: Abdominal pain, Black stools, Bloody stools, Constipation, Diarrhea, Nausea, Vomiting, Difficulty Swallowing, Anorexia Neurologic: COMPLAINS OF: Headache, Paresthesias (left hand), DENIES: Abnormal gait, Localized weakness, Seizures, Speech Problems, Tremor, Poor Balance Psychiatric: DENIES: Anxiety, Confusion, Mood changes, Depression Past Family Social History Past Medical History Hypertension Migraine cephalgia Past Surgical History 2 Hysterectomy Reported Medications Reported Meds & Active Scripts Active Reported Metoprolol Tartrate 50 Mg Tab 50 Mg PO BID Amlodipine-Atorvastatin 10-10 Mg Tab 1 Tab PO DAILY Allergies: Coded Allergies: Ibuprofen (Verified Allergy, Intermediate, RASH/HIVES, 02/01/17) Family History Reviewed is significant for father having heart disease, hyperlipidemia, diabetes Social History Patient denies any tobacco, alcohol illicit drugs Physical Exam Vital Signs Vital Signs Date Time Temp Pulse Resp B/P Pulse Ox O2 Delivery O2 Flow Rate FiO2 02/01/17 10:21 99 21 02/01/17 08:07 84 15 149/102 98 02/01/17 04:12 78 16 146/94 Room Air 02/01/17 03:30 75 18 153/96 99 Room Air 02/01/17 01:15 18 98 Room Air 02/01/17 01:15 89 18 150/94 98 Room Air 02/01/17 01:00 98.2 77 18 155/88 98 Physical Exam GENERAL: Well-developed, well-nourished, in no acute distress. alert and orientated HEENT: Head is normocephalic without any lesions or masses noted. Facial features are symmetric. Eyes: Pupils equal round reactive to light. Extraocular muscles are intact. Conjunctivae were clear. Oropharyngeal: Pharynx without any erythema edema. Tongue is midline without deviation. Buccal mucosa is moist without any masses or lesions NECK: Supple without any masses. Trachea midline no deviation. No JVD, no bruits are appreciated CARDIAC: Regular rhythm, regular rate. S1/S2 are heard. No murmurs gallops or rubs. LUNGS: Clear to auscultation bilaterally. No wheeze, rhonchi or rales. No use of accessory muscles on inspiration or expiration. ABDOMEN: Soft, nontender. Nondistended. Bowel sounds heard in all 4 quadrants. No organomegaly or masses. Negative rebound, negative guarding EXTREMITIES: No edema, pulses are equal bilaterally. No cyanosis or clubbing NEUROLOGY: Mood and affect appear appropriate. Cranial nerves II through XII grossly intact. Muscle strength 5/5 in upper and lower extremities bilaterally. Deep tendon reflexes are 2+ in upper and lower extremities bilaterally. Laboratory Laboratory Tests Test 02/01/17 02/01/17 02/01/17 02:00 05:25 09:38 White Blood Count 7.8 Red Blood Count 4.48 Hemoglobin 13.1 Hematocrit 39.4 Mean Corpuscular Volume 88.1 Mean Corpuscular Hemoglobin 29.4 Mean Corpuscular Hemoglobin 33.4 Concent Red Cell Distribution Width 13.7 Platelet Count 278 Mean Platelet Volume 8.1 Neutrophils (%) (Auto) 41.4 Lymphocytes (%) (Auto) 43.8 Monocytes (%) (Auto) 6.7 Eosinophils (%) (Auto) 7.4 Basophils (%) (Auto) 0.7 Neutrophils # (Auto) 3.2 Lymphocytes # (Auto) 3.4 Monocytes # (Auto) 0.5 Eosinophils # (Auto) 0.6 Basophils # (Auto) 0.1 CBC Comment DIFF FINAL Differential Comment Prothrombin Time 10.3 Prothromb Time International 0.9 Ratio Activated Partial 27.7 Thromboplast Time Urine Color STRAW Urine Turbidity CLEAR Urine pH 6.5 Urine Specific [place] 1.010 Urine Protein NEG Urine Glucose (UA) NEG Urine Ketones NEG Urine Occult Blood SMALL Urine Nitrite NEG Urine Bilirubin NEG Urine Leukocyte Esterase NEG Urine RBC 0-3 Urine Squamous Epithelial 0-5 Cells Microscopic Urinalysis Comment CULT NOT INDICATED Sodium Level 141 Potassium Level 4.0 Chloride Level 107 Carbon Dioxide Level 26.4 Anion Gap 8 Blood Urea Nitrogen 20 Creatinine 0.99 Estimat Glomerular Filtration 75 Rate Random Glucose 106 Calcium Level 8.7 Total Bilirubin 0.2 Aspartate Amino Transf 15 (AST/SGOT) Alanine Aminotransferase 23 (ALT/SGPT) Alkaline Phosphatase 119 Troponin I LESS THAN 0.02 LESS THAN 0.02 LESS THAN 0.02 Total Protein 7.7 Albumin 3.5 Total Creatine Kinase 241 259 Creatine Kinase MB 1.1 1.2 Creatine Kinase MB % 0.5 0.5 Result Diagram: 02/01/17 0200 02/01/17 0200 Assessment and Plan Assessment and Plan Chest pain, atypical: Patient has been ruled out for any acute coronary event with serial cardiac enzymes are negative. Serial EEGs or with sinus rhythm without any changes. Patient did undergo exercise stress test and ruled out any underlying ischemia. Patient continued on aspirin. Cephalgia, left-sided with associated photosensitivity: Patient with history of migraine cephalgia. CT scan did indicate possible artifact or very small subarachnoid hemorrhage. CTA was performed at the request of neurosurgeon and was negative. It was indicated by ER documentation that neurosurgery does not feel patient needs to be evaluated in the hospital from a neurosurgical standpoint. Indicated patient should have close follow-up with Dr. Coats in outpatient setting this week. ER physician notified patient of these recommendations and emphasize the importance of follow-up. Hypertension: Resume home medications DVT prevention: Sequential compression devices Written by Ashu Birseno PA-C, acting as scribe for Dr. Carr on 02/01/17 at 1145. The documentation accurately reflects the work and decisions performed face-to- face by Dr. Carr on 02/01/17 at 1145. Discharge disposition Discharge home in stable condition Activity: Ad bernard. Diet: Healthy heart diet Medications per medication reconciliation Follow-up primary medical doctor in one week Problem Qualifiers (1) Chest pain: Qualified Code: R07.2 - Precordial pain (2) Cephalgia: Qualified Code: R51 - Acute nonintractable headache, unspecified headache type Ashu Briseno Feb 01, 2017 11:58
[2017-02-01] MEDS ORDERED: METOPROLOL TARTRATE 50 MG TAB PO SCH (12:00)
[2017-02-01] MEDS ORDERED: ATORVASTATIN 10 MG TAB PO SCH (13:00)
--- NOTE | 2017-02-01 13:36 | HHI.DCPOC ---
Discharge Care Plan Diagnosis: (1) Cephalgia (2) Chest pain (3) Subarachnoid hemorrhage Goals to Promote Your Health * To prevent worsening of your condition and complications * To maintain your health at the optimal level Directions to Meet Your Goals Take your medications as prescribed Follow your dietary instruction Follow activity as directed Keep your appointments as scheduled Take your immunizations and boosters as scheduled If your symptoms worsen call your PCP, if no PCP go to Urgent Care Center or Emergency Room Smoking is Dangerous to Your Health. Avoid second hand smoke Call the 24-hour hour crisis hotline for domestic abuse at Ashu Briseno Feb 01, 2017 13:35
--- NOTE | 2017-02-02 20:31 | EKG ---
Date Performed: 02/01/2017 Time Performed: 11:40:14 PTAGE: 41 years EKG: Sinus rhythm . Normal ECG PREVIOUS TRACING : 02/01/2017 08.46 Compared to prior tracing no significant change DOCTOR: Les Cronin Interpretating Date/Time 02/02/2017 20:29:08
--- NOTE | 2017-02-02 20:34 | EKG ---
Date Performed: 02/01/2017 Time Performed: 07:23:20 PTAGE: 41 years EKG: Sinus rhythm . Normal ECG PREVIOUS TRACING : 02/01/2017 00.53 Compared to prior tracing no significant change DOCTOR: Les Cronin Interpretating Date/Time 02/02/2017 20:34:29
--- NOTE | 2017-02-02 20:34 | EKG ---
Date Performed: 02/01/2017 Time Performed: 08:46:22 PTAGE: 41 years EKG: Sinus rhythm . Normal ECG PREVIOUS TRACING : 02/01/2017 07.23 Compared to prior tracing no significant change DOCTOR: Les Cronin Interpretating Date/Time 02/02/2017 20:34:07
--- NOTE | 2017-02-02 20:35 | EKG ---
Date Performed: 02/01/2017 Time Performed: 00:53:36 PTAGE: 41 years EKG: Sinus rhythm . Lateral T wave changes are nonspecific Borderline ECG PREVIOUS TRACING : 07/12/2016 22.42 Compared to prior tracing no significant change DOCTOR: Les Cronin Interpretating Date/Time 02/02/2017 20:35:23
== END 2017-02-01 15:15 | disposition home or self-care (01) ==
LOC: PHEFT 00:48 → PHEDA 06:56
PROVIDERS: ADMIT Hospitalist; ATTEND Hospitalist
DX: R07.2 Precordial pain (principal); I60.9 Nontraumatic subarachnoid hemorrhage, unspecified; I10 Essential (primary) hypertension; J45.909 Unspecified asthma, uncomplicated; R20.9 Unspecified disturbances of skin sensation; G43.909 Migraine, unspecified, not intractable, without status migrainosus
CPT/HCPCS: 70450; 70496; 70498; 71010; 80053; 81001; 82550; 82552; 84484; 84703; 85025; 85610; 85730; 93005; 99291; G0378; J2270; Q9967

== ENCOUNTER 2017-03-13 14:38 | Emergency (ER) | payer SELFPAY ==
[~2017-03-13] VITALS: Ht 152.4 cm; Wt 79.0 kg
[~2017-03-13 14:38] MED LIST changes: -IBUP-232 PO; -ZOFR4TAB3 SL
[2017-03-13 14:42] VITALS: BP 170/121; PULSE 81; RESP 16; TEMP 97.7; O2SAT 98
[2017-03-13] MEDS ORDERED: SODIUM CHLOR 0.9% 1000 ML INJ 1,000 ML IV SCH (14:52)
[2017-03-13 14:57] VITALS: O2SAT 98
--- NOTE | 2017-03-13 14:58 | PD ---
HPI Chief Complaint: Headache Time Seen by Provider: 14:52 Travel History International Travel<30 days: No Contact w/Intl Traveler<30days: No Traveled to known affect area: No History of Present Illness HPI 41-year-old female patient with previous history of hysterectomy, presents to the ER today because of 2 days history of headache, nausea, vomiting multiple times, 9 and 10 right lower quadrant abdominal pains, and malaise. She does not know any exacerbating or alleviating factors. She denies any diarrhea, urinary symptoms, unusual vaginal discharge, stiff neck, or other symptoms. She does not know any sick contacts. Modifying Factors: None Associated Signs & Symptoms: Headaches, nausea, vomiting, right lower quadrant abdominal pain Risk Factors: None PFSH Past Medical History Hx Anticoagulant Therapy: No Asthma: Yes Blood Disorders: No Cancer: No Cardiovascular Problems: Yes (HTN) Diabetes: No Diminished Hearing: No Endocrine: No Genitourinary: No Hypertension: Yes Immune Disorder: No Musculoskeletal: No Neurologic: No Psychiatric: No Reproductive: Yes (ENDOMETRIOSIS) Respiratory: Yes Immunizations Current: Yes Pneumonia: Yes Influenza Vaccination: No ?: Not Menopausal: Yes : 3 Para: 3 Ovarian Cysts: Yes Dilation and Curettage (D&C): Yes Tubal Ligation: Yes Past Surgical History Section: Yes (X 2) Gynecologic Surgery: Yes (OVARIAN CYST REMOVED, csect, merna) Hysterectomy: Yes Social History Alcohol Use: No Tobacco Use: No Substance Use: No Allergies-Medications (Allergen,Severity, Reaction): Coded Allergies: Ibuprofen (Verified Allergy, Intermediate, RASH/HIVES, 03/13/17) Reported Meds & Prescriptions Reported Meds & Active Scripts Active Reported Metoprolol Tartrate 50 Mg Tab 50 Mg PO BID Amlodipine-Atorvastatin 10-10 Mg Tab 1 Tab PO DAILY Review of Systems Except as stated in HPI: all other systems reviewed are Neg Physical Exam Narrative GENERAL: Well-developed middle age -[place] female patient currently not acute distress. SKIN: Focused skin assessment warm/dry. HEAD: Atraumatic. Normocephalic. EYES: Pupils equal and round. No scleral icterus. No injection or drainage. ENT: No nasal bleeding or discharge. Mucous membranes pink and moist. NECK: Trachea midline. No JVD. CARDIOVASCULAR: Regular rate and rhythm. No murmur appreciated. RESPIRATORY: No accessory muscle use. Clear to auscultation. Breath sounds equal bilaterally. GASTROINTESTINAL: Abdomen soft, mild right lower quadrant tenderness without guarding or rebound, nondistended. Hepatic and splenic margins not palpable. MUSCULOSKELETAL: No obvious deformities. No clubbing. No cyanosis. No edema. NEUROLOGICAL: Awake and alert. No obvious cranial nerve deficits. Motor grossly within normal limits. Normal speech. PSYCHIATRIC: Appropriate mood and affect; insight and judgment normal. Data Data Last Documented VS Vital Signs Date Time Temp Pulse Resp B/P Pulse Ox O2 Delivery O2 Flow Rate FiO2 03/13/17 14:57 98 Room Air 03/13/17 14:42 97.7 81 16 170/121 Orders Complete Blood Count With Diff (03/13/17 14:52) Comprehensive Metabolic Panel (03/13/17 14:52) Lipase (03/13/17 14:52) Urinalysis - C+S If Indicated (03/13/17 14:52) Ct Abd/Pel W Iv Contrast(Rout) (03/13/17 14:52) Iv Access Insert/Monitor (03/13/17 14:52) Ecg Monitoring (03/13/17 14:52) Oximetry (03/13/17 14:52) Morphine Inj (Morphine Inj) (03/13/17 15:00) Ondansetron Inj (Zofran Inj) (03/13/17 15:00) Sodium Chlor 0.9% 1000 Ml Inj (Ns 1000 M (03/13/17 14:52) Sodium Chloride 0.9% Flush (Ns Flush) (03/13/17 15:00) Influenzae A/B Antigen (03/13/17 14:52) Iohexol 350 Inj (Omnipaque 350 Inj) (03/13/17 16:03) Prochlorperazine Inj (Compazine Inj) (03/13/17 17:15) Labs Laboratory Tests Test 03/13/17 15:09 White Blood Count 6.7 TH/MM3 Red Blood Count 4.88 MIL/MM3 Hemoglobin 14.1 GM/DL Hematocrit 42.4 % Mean Corpuscular Volume 86.9 FL Mean Corpuscular Hemoglobin 28.9 PG Mean Corpuscular Hemoglobin 33.3 % Concent Red Cell Distribution Width 13.2 % Platelet Count 301 TH/MM3 Mean Platelet Volume 7.8 FL Neutrophils (%) (Auto) 44.0 % Lymphocytes (%) (Auto) 40.6 % Monocytes (%) (Auto) 7.2 % Eosinophils (%) (Auto) 7.4 % Basophils (%) (Auto) 0.8 % Neutrophils # (Auto) 2.9 TH/MM3 Lymphocytes # (Auto) 2.7 TH/MM3 Monocytes # (Auto) 0.5 TH/MM3 Eosinophils # (Auto) 0.5 TH/MM3 Basophils # (Auto) 0.1 TH/MM3 CBC Comment DIFF FINAL Differential Comment Urine Collection Type CLEAN CATCH Urine Color YELLOW Urine Turbidity CLEAR Urine pH 7.0 Urine Specific [place] 1.020 Urine Protein TRACE mg/dL Urine Glucose (UA) NEG mg/dL Urine Ketones NEG mg/dL Urine Occult Blood SMALL Urine Nitrite NEG Urine Bilirubin NEG Urine Leukocyte Esterase NEG Urine RBC 0-3 /hpf Microscopic Urinalysis Comment CULT NOT INDICATED Sodium Level 140 MEQ/L Potassium Level 3.6 MEQ/L Chloride Level 104 MEQ/L Carbon Dioxide Level 28.9 MEQ/L Anion Gap 7 MEQ/L Blood Urea Nitrogen 15 MG/DL Creatinine 0.90 MG/DL Estimat Glomerular Filtration 84 ML/MIN Rate Random Glucose 97 MG/DL Calcium Level 9.1 MG/DL Total Bilirubin 0.3 MG/DL Aspartate Amino Transf 16 U/L (AST/SGOT) Alanine Aminotransferase 22 U/L (ALT/SGPT) Alkaline Phosphatase 118 U/L Total Protein 8.4 GM/DL Albumin 3.8 GM/DL Lipase 153 U/L [facility] Medical Decision Making Medical Screen Exam Complete: Yes Emergency Medical Condition: Yes Medical Record Reviewed: Yes Interpretation(s) Laboratory Tests Test 03/13/17 15:09 Eosinophils (%) (Auto) 7.4 % (0.0-4.0) Eosinophils # (Auto) 0.5 TH/MM3 (0-0.4) Urine Occult Blood SMALL (NEG) Estimat Glomerular Filtration 84 ML/MIN (>89) Rate Alkaline Phosphatase 118 U/L (45-117) Total Protein 8.4 GM/DL (6.4-8.2) Last 24 hours Impressions Abdomen/Pelvis CT 03/13/17 7392 Signed Impressions: Service Date/Time: Monday, March 13, 2017 15:54 - CONCLUSION: 1. Mild increase in size of hiatus hernia when compared to prior CT. 2. Otherwise negative exam. Homero Wu MD Differential Diagnosis Nausea, vomiting, right lower quadrant abdominal pains, headachesviral gastroenteritis versus UTI/pyelonephritis versus renal colic versus dehydration versus metabolic abnormalities Narrative Course Lab work did not show significant leukocytosis or signs of dehydration or metabolic issues. Her CAT scan of the abdomen did not show any signs of acute intra-abdominal process. At this point, patient has had no further vomiting in the ER. My plan would be to give her further symptomatic relief for headaches and pains and have her follow-up with primary care physician. Patient states that she has history of migraine headaches and after further questioning, patient states that this could be her migraine as well. I do not see any meningeal signs and this case. Return for any worsening in symptoms as needed. The plan has been discussed with her and she states understanding. Diagnosis Primary Impression: Viral syndrome Additional Impression: Cephalgia Med/Other Pt SpecificInfo: Prescription(s) given Scripts Promethazine (Phenergan)25 Mg Tab25 Mg PO Q6H PRN (Nausea/Vomiting) #12 TAB Ref 0 Prov:Sameer Nolan MD 03/13/17 Disposition: 01 DISCHARGE HOME Condition: Stable Sameer Nolan MD Mar 13, 2017 14:58
[2017-03-13] MEDS ORDERED: ONDANSETRON HCL 4 MG/2 ML VIAL IVP ONE (15:00)
[2017-03-13] MEDS ORDERED: SODIUM CHLORIDE 0.9% FLUSH 10 ML FLUSH IV FLUSH PRN (15:00)
[2017-03-13] MEDS ORDERED: MORPHINE SULFATE 4 MG/ML INJ IV PUSH ONE (15:00)
[2017-03-13 15:14] LABS: AUTOMATED NEUTROPHIL # 2.9 TH/MM3 (1.8-7.7); BASOPHIL # 0.1 TH/MM3 (0-0.2); BASOPHIL % 0.8 % (0.0-2.0); EOSINOPHIL # 0.5 TH/MM3 (0-0.4); EOSINOPHIL % 7.4 % (0.0-4.0); HEMATOCRIT 42.4 % (35.0-46.0); HEMO FLAGS DIFF FINAL; LYMPH % 40.6 % (9.0-44.0); LYMPHOCYTE # 2.7 TH/MM3 (1.0-4.8); MEAN CELL VOLUME 86.9 FL (80.0-100.0); MEAN CORPUSCULAR HEMOGLOBIN 28.9 PG (27.0-34.0); MEAN CORPUSCULAR HGB CONC 33.3 % (32.0-36.0); MONO % 7.2 % (0.0-8.0); PLATELET COUNT 301 TH/MM3 (150-450); RED BLOOD COUNT 4.88 MIL/MM3 (4.00-5.30); RED CELL DISTRIBUTION WIDTH 13.2 % (11.6-17.2); WHITE BLOOD COUNT 6.7 TH/MM3 (4.0-11.0)
[2017-03-13 15:16] LABS: BLOOD, URINE SMALL (NEG); GLUCOSE,URINE NEG (NEG); KETONE, URINE NEG (NEG); NITRITE,URINE NEG (NEG)
[2017-03-13 15:19] LABS: METHOD OF COLLECTION CLEAN CATCH; URINE COLOR YELLOW (YELLW/STRAW)
[2017-03-13 15:20] LABS: COMMENT (UR) CULT NOT INDICATED; CULTURE IF INDICATED CULT NOT INDICATED; RBC, URINE 0-3 /hpf (0-3)
[2017-03-13 15:22] LABS: CHLORIDE 104 MEQ/L (98-107); POTASSIUM 3.6 MEQ/L (3.5-5.1); SODIUM (NA) 140 MEQ/L (136-145)
[2017-03-13 15:25] LABS: ANION GAP 7 MEQ/L (5-15); BICARBONATE 28.9 MEQ/L (21.0-32.0); BLOOD UREA NITROGEN 15 MG/DL (7-18)
[2017-03-13 15:28] LABS: ALT (GPT) 22 U/L (10-53); AST (GOT) 16 U/L (15-37); GLOMERULAR FILTRATION RATE 84 ML/MIN (>89)
[2017-03-13 15:30] LABS: TOTAL BILIRUBIN ADULT 0.3 MG/DL (0.2-1.0)
[2017-03-13 15:31] LABS: ALKALINE PHOSPHATASE 118 U/L (45-117)
[2017-03-13] MEDS ORDERED: IOHEXOL 350 MG/ML 10 ML VIAL (for RAD DIAG) IV ONE (16:03)
--- NOTE | 2017-03-13 16:52 | RADHPO ---
EXAM DATE/TIME: 03/13/2017 15:54 [facility] COMPARISON: CT ABDOMEN & PELVIS W/O CONTRAST, November 02, 2014, 17:30. CT ABDOMEN & PELVIS W CONTRAST, Crystal2012, 4:18. INDICATIONS : Right lower quadrant pain. IV CONTRAST: 95 cc Omnipaque 350 (iohexol) IV ORAL CONTRAST: No oral contrast ingested. RADIATION DOSE: 15.89 CTDIvol (mGy) MEDICAL HISTORY : Hypertension. SURGICAL HISTORY : Tubal ligation. Hysterectomy. ENCOUNTER: Initial ACUITY: 2 days PAIN SCALE: 4/10 LOCATION: abdomen/pelvis TECHNIQUE: Volumetric scanning of the abdomen and pelvis was performed. Using automated exposure control and ad justment of the mA and/or kV according to patient size, radiation dose was kept as low as reasonably achievable to obtain optimal diagnostic quality images. FINDINGS: LOWER LUNGS: The visualized lower lungs are clear. Moderate size hiatus hernia is slightly larger than on prior C T scan in 2012, now measuring 6 cm in width (previously measured 5 cm). LIVER: Homogeneous density without lesion. There is no dilation of the biliary tree. No calcified gallston es. SPLEEN: Normal size without lesion. PANCREAS: Within normal limits. KIDNEYS: Normal in size and shape. There is no mass, stone or hydronephrosis. ADRENAL GLANDS: Within normal limits. VASCULAR: There is no aortic aneurysm. BOWEL/MESENTERY: The stomach, small bowel, and colon demonstrate no acute abnormality. There is no free intraperitone al air or fluid. ABDOMINAL WALL: Within normal limits. RETROPERITONEUM: There is no lymphadenopathy. BLADDER: No wall thickening or mass. REPRODUCTIVE: Hysterectomy. No evidence of free fluid. INGUINAL: There is no lymphadenopathy or hernia. MUSCULOSKELETAL: Within normal limits for patient age. CONCLUSION: 1. Mild increase in size of hiatus hernia when compared to prior CT. 2. Otherwise negative exam. Homero Wu MD on March 13, 2017 at 16:48 Board Certified Radiologist. This report was verified electronically.
[2017-03-13] MEDS ORDERED: PROM25TA5 PO (17:11)
[2017-03-13 17:14] VITALS: BP 157/107; PULSE 81; RESP 17; O2SAT 97
[2017-03-13] MEDS ORDERED: METOPROLOL TARTRATE 50 MG TAB PO ONE (17:15)
[2017-03-13] MEDS ORDERED: PROCHLORPERAZINE INJ 10 MG/2 ML VIAL IM ONE (17:15)
== END 2017-03-13 17:22 | disposition home or self-care (01) ==
LOC: PHED 14:38
DX: R51 Headache (principal); B34.9 Viral infection, unspecified; R11.2 Nausea with vomiting, unspecified; R10.31 Right lower quadrant pain; R53.81 Other malaise; J45.909 Unspecified asthma, uncomplicated; I10 Essential (primary) hypertension
CPT/HCPCS: 74177; 80053; 81001; 83690; 85025; 87804; 96361; 96372; 96374; 96375; 99284; J0780; J2270; J2405; J7030; Q9967

== ENCOUNTER 2017-07-19 09:12 | Emergency (ER) | payer MEDICAID ==
[~2017-07-19] VITALS: Ht 152.4 cm; Wt 79.0 kg
[~2017-07-19 09:12] MED LIST changes: +PROM25TA5 PO
[2017-07-19 09:20] VITALS: BP 177/111; PULSE 88; RESP 16; TEMP 98.4; O2SAT 99
--- NOTE | 2017-07-19 09:39 | PD ---
HPI Chief Complaint: Musculoskeletal Complaint Time Seen by Provider: 09:24 Travel History International Travel<30 days: No Contact w/Intl Traveler<30days: No Traveled to known affect area: No History of Present Illness HPI The patient is a 42-year-old [place] female who presents to the emergency department for evaluation right foot pain. The patient developed right foot pain yesterday, is located over the lateral aspect the right foot, worse with weightbearing, slightly alleviated at rest. Patient does a lot of standing and walking during the course of her day at her job, denies any acute trauma to the right foot. She denies any significant swelling or redness over the affected area. She does complain of pain on palpation, denies any accompanying ankle pain, knee pain, hip pain, or back pain. She denies any numbness or tingling of the right foot. She does have a history of hypertension. Patient has a previous hysterectomy, denies . She has not taken any [id number] medications for her pain. PFSH Past Medical History Hx Anticoagulant Therapy: No Asthma: Yes Blood Disorders: No Cancer: No Cardiovascular Problems: Yes (HTN) Diabetes: No Diminished Hearing: No Endocrine: No Genitourinary: No Hypertension: Yes Immune Disorder: No Musculoskeletal: No Neurologic: No Psychiatric: No Reproductive: Yes (ENDOMETRIOSIS) Respiratory: Yes Immunizations Current: Yes Pneumonia: Yes ?: Not Menopausal: Yes : 3 Para: 3 Ovarian Cysts: Yes Dilation and Curettage (D&C): Yes Tubal Ligation: Yes Past Surgical History Section: Yes (X 2) Gynecologic Surgery: Yes (OVARIAN CYST REMOVED, csect, merna) Hysterectomy: Yes Social History Alcohol Use: No Tobacco Use: No Substance Use: No Allergies-Medications (Allergen,Severity, Reaction): Coded Allergies: ibuprofen (Unverified Allergy, Intermediate, RASH/HIVES, 07/19/17) Reported Meds & Prescriptions Reported Meds & Active Scripts Active Reported Metoprolol Tartrate 50 Mg Tab 50 Mg PO BID Amlodipine-Atorvastatin 10-10 Mg Tab 1 Tab PO DAILY Review of Systems Except as stated in HPI: all other systems reviewed are Neg General / Constitutional: No: Fever Cardiovascular: No: Chest Pain or Discomfort Respiratory: No: Shortness of Breath Gastrointestinal: No: Nausea, Vomiting, Abdominal Pain Musculoskeletal: Positive: Pain Neurologic: No: Paresthesia, Sensory Disturbance Physical Exam Narrative GENERAL: Awake, alert, nontoxic-appearing 22 year-old female who appears her stated age and is in no acute respiratory distress. SKIN: Focused skin assessment warm/dry. HEAD: Atraumatic. Normocephalic. EYES: No injection or drainage. ENT: No nasal bleeding or discharge. Mucous membranes pink and moist. NECK: Trachea midline. No JVD. MUSCULOSKELETAL: No obvious deformities. Patient has tenderness upon palpation of the fifth metatarsal, proximal aspect, minimal tenderness at the distal aspect. No significant swelling noted. Positive dorsalis pedal pulses. No tenderness of the medial or lateral malleus. No tenderness of the proximal fibula/tibia. No tenderness of the right hip. Full range of motion with plantar flexion and dorsiflexion. NEUROLOGICAL: Awake and alert. No obvious cranial nerve deficits. Motor grossly within normal limits. Normal speech. PSYCHIATRIC: Appropriate mood and affect; insight and judgment normal. Data Data Last Documented VS Vital Signs Date Time Temp Pulse Resp B/P (MAP) Pulse Ox O2 Delivery O2 Flow Rate FiO2 07/19/17 09:20 98.4 88 16 177/111 (133) 99 Orders Orders Foot, Complete (Yaf0mhr) (07/19/17 ) Acetaminophen (Tylenol) (07/19/17 09:45) MDM Medical Decision Making Medical Screen Exam Complete: Yes Emergency Medical Condition: Yes Medical Record Reviewed: Yes Interpretation(s) X-ray of the right foot reveals unremarkable examination of the right foot. Differential Diagnosis differential diagnosis includes fracture, contusion, stress fracture, dislocation, hematoma, arthropathy, gout, pseudogout. Narrative Course Three-view x-ray of the right foot was obtained. The patient was administered Tylenol 650 mg orally for pain secondary to allergy with hives with ibuprofen administration. Diagnosis Primary Impression: Right foot pain Patient Instructions: General Instructions Additional Instructions: Please provide the patient a copy of her x-ray results at discharge. Follow-up with your primary physician. Return if symptoms worsen or progress. Elevate and ice. Follow-up with podiatry if symptoms persist. Med/Other Pt SpecificInfo: Prescription(s) given Scripts Hydrocodone-Acetaminophen ([place]) 5-325 mg Tab 1 TAB PO Q6H Y for PAIN, #12 TAB 0 Refills Prov: Nish Kessler MD 07/19/17 Disposition: 01 DISCHARGE HOME Condition: Stable Nish Kessler MD Jul 19, 2017 09:39
[2017-07-19] MEDS ORDERED: ACETAMINOPHEN 325 MG TAB PO ONE (09:45)
--- NOTE | 2017-07-19 09:57 | RADRPT ---
EXAM DATE/TIME: 07/19/2017 09:46 [place] COMPARISON: No previous studies available for comparison. INDICATIONS : Right lateral foot pain with no known injury, worse when weight bearing. MEDICAL HISTORY : Hypertension. Asthma. Pneumonia,. Endometriosis. Ovarian cyst. SURGICAL HISTORY : Tubal ligation. section. Hysterectomy. D&C. Ovarian cyst removal. ENCOUNTER: Initial ACUITY: 1 day PAIN SCORE: 8/10 LOCATION: Right lateral foot FINDINGS: Three view examination of the right foot demonstrates no soft tissue swelling, dislocation, or fractu re. The tarsal bones appear intact. The interphalangeal and metatarsophalangeal joints are intact. The calcaneus is intact. Bony mineralization is normal. CONCLUSION: Unremarkable examination of the right foot. Damir Thompson MD on July 19, 2017 at 9:55 Board Certified Radiologist. This report was verified electronically.
[2017-07-19] MEDS ORDERED: NORC5TAB PO (10:01)
== END 2017-07-19 10:24 | disposition home or self-care (01) ==
LOC: PHED 09:12
DX: M79.671 Pain in right foot (principal)
CPT/HCPCS: 73630; 99283

== ENCOUNTER 2017-08-15 03:44 | Emergency (ER) | payer MEDICAID ==
[~2017-08-15] VITALS: Ht 152.4 cm; Wt 78.2 kg
[~2017-08-15 03:44] MED LIST changes: +NORC5TAB PO; -PROM25TA5 PO
[2017-08-15 03:48] VITALS: BP 187/129; PULSE 79; RESP 16; TEMP 98; O2SAT 100
--- NOTE | 2017-08-15 04:15 | PD ---
HPI Chief Complaint: tight ring needs removing Time Seen by Provider: 04:06 Travel History International Travel<30 days: No Contact w/Intl Traveler<30days: No Traveled to known affect area: No History of Present Illness HPI The patient is a 42-year-old right-hand dominant female who woke up about 3:15 this morning with her ring on the right fourth finger stuck. She slept with her hand under the pillow under finger started swelling. She tried so an oil and other lubricants at home and this did not work. She states she does not care about the ring and to just cut it off. She has a history of hypertension. PFSH Past Medical History Hx Anticoagulant Therapy: No Asthma: Yes Blood Disorders: No Cancer: No Cardiovascular Problems: Yes (HTN) Diabetes: No Diminished Hearing: No Endocrine: No Gastrointestinal Disorders: No Genitourinary: No Hypertension: Yes Immune Disorder: No Implanted Vascular Access Dvce: No Musculoskeletal: No Neurologic: No Psychiatric: No Reproductive: Yes (ENDOMETRIOSIS) Respiratory: Yes Immunizations Current: Yes Pneumonia: Yes Menopausal: Yes : 3 Para: 3 Ovarian Cysts: Yes Dilation and Curettage (D&C): Yes Tubal Ligation: Yes Past Surgical History Section: Yes (X 2) Gynecologic Surgery: Yes (OVARIAN CYST REMOVED, csect, merna) Hysterectomy: Yes Social History Alcohol Use: No Tobacco Use: No Substance Use: No Allergies-Medications (Allergen,Severity, Reaction): Coded Allergies: ibuprofen (Unverified Allergy, Intermediate, RASH/HIVES, 07/19/17) Reported Meds & Prescriptions Reported Meds & Active Scripts Active [place] (Hydrocodone-Acetaminophen) 5-325 mg Tab 1 Tab PO Q6H PRN Reported Metoprolol Tartrate 50 Mg Tab 50 Mg PO BID Amlodipine-Atorvastatin 10-10 Mg Tab 1 Tab PO DAILY Review of Systems Except as stated in HPI: all other systems reviewed are Neg Physical Exam Narrative GENERAL: The patient is alert, oriented 3 in slight apparent distress with her right fourth finger pain caused by the ring. Her vital signs show blood pressure 187/129 but are otherwise normal. SKIN: Focused skin assessment warm/dry. HEAD: Atraumatic. Normocephalic. EYES: Pupils equal and round. No scleral icterus. No injection or drainage. ENT: No nasal bleeding or discharge. Mucous membranes pink and moist. NECK: Trachea midline. No JVD. CARDIOVASCULAR: Regular rate and rhythm. No murmur appreciated. RESPIRATORY: No accessory muscle use. Clear to auscultation. Breath sounds equal bilaterally. GASTROINTESTINAL: Abdomen soft, non-tender, nondistended. Hepatic and splenic margins not palpable. MUSCULOSKELETAL: No obvious deformities. No clubbing. No cyanosis. No edema. The right fourth finger is swollen although there is good capillary refill and pinprick present. Attempts using lubricant to pull ring off and to reduce the swelling by pressure on the finger did not work. NEUROLOGICAL: Awake and alert. No obvious cranial nerve deficits. Motor grossly within normal limits. Normal speech. PSYCHIATRIC: Appropriate mood and affect; insight and judgment normal. Data Data Last Documented VS Vital Signs Date Time Temp Pulse Resp B/P (MAP) Pulse Ox O2 Delivery O2 Flow Rate FiO2 08/15/17 03:48 98.0 79 16 187/129 (148) 100 MDM Medical Decision Making Medical Screen Exam Complete: Yes Emergency Medical Condition: Yes Medical Record Reviewed: Yes Differential Diagnosis Ring too tight, swelling of right fourth finger, cellulitis right fourth finger- unlikely Narrative Course The patient is ring is too tight. The patient does not care about preserving the ring, she just wants it off. She should not put it on until the ring is resized. Procedures Procedure Narrative The ring was removed using a ring cutter and the skin is not broken. Patient tolerated the procedure well. Diagnosis Primary Impression: Ring or other jewelry causing external constriction, initial encounter Additional Instructions: Make sure you resize the ring before you put it back on. Disposition: 01 DISCHARGE HOME Condition: Stable Jesus Briseno MD Aug 15, 2017 04:15
[2017-08-15 04:18] VITALS: BP 187/129; PULSE 79; RESP 16; TEMP 98; O2SAT 100
== END 2017-08-15 04:33 | disposition home or self-care (01) ==
LOC: PHED 03:44
DX: S60.444A External constriction of right ring finger, initial encounter (principal); I10 Essential (primary) hypertension; J45.909 Unspecified asthma, uncomplicated
CPT/HCPCS: 99282

== ENCOUNTER 2017-11-28 17:42 | Emergency (ER) | payer SELFPAY ==
[~2017-11-28] VITALS: Ht 172.7 cm; Wt 79.0 kg
[~2017-11-28 17:42] MED LIST changes: -NORC5TAB PO
[2017-11-28 17:46] VITALS: BP 195/104; PULSE 86; RESP 16; TEMP 97.9; O2SAT 100
[2017-11-28] MEDS ORDERED: ACETAMINOPHEN 500 MG CPLT PO ONE (19:00)
[2017-11-28] MEDS ORDERED: ORPHENADRINE INJ 60 MG/2 ML AMP IM ONE (19:00)
[2017-11-28] MEDS ORDERED: ROBA500T PO (19:22)
[2017-11-28] MEDS ORDERED: MEDR4PAK PO (19:25)
--- NOTE | 2017-11-28 19:26 | PD ---
HPI Chief Complaint: Musculoskeletal Complaint Time Seen by Provider: 18:16 Travel History International Travel<30 days: No Contact w/Intl Traveler<30days: No Traveled to known affect area: No History of Present Illness HPI 42-year-old female here with low back pain after twisting injury 3 days ago. She reports pain is constant, worse with movement relieved with rest. She has had similar symptoms of low back pain in the past. She denies fever, chills, saddle anesthesia, continence, paresthesia or weakness of the extremities. Symptom severity is moderate. PFSH Past Medical History Hx Anticoagulant Therapy: No Asthma: Yes Blood Disorders: No Cancer: No Cardiovascular Problems: Yes (HTN) Diabetes: No Diminished Hearing: No Endocrine: No Gastrointestinal Disorders: No Genitourinary: No Hypertension: Yes Immune Disorder: No Implanted Vascular Access Dvce: No Musculoskeletal: No Neurologic: No Psychiatric: No Reproductive: Yes (ENDOMETRIOSIS) Respiratory: Yes Immunizations Current: Yes Pneumonia: Yes Tetanus Vaccination: > 5 Years Influenza Vaccination: Yes ?: Not Menopausal: Yes : 3 Para: 3 Ovarian Cysts: Yes Dilation and Curettage (D&C): Yes Tubal Ligation: Yes Past Surgical History Section: Yes (X 2) Gynecologic Surgery: Yes (OVARIAN CYST REMOVED, csect, merna) Hysterectomy: Yes Social History Alcohol Use: No Tobacco Use: No Substance Use: No Allergies-Medications (Allergen,Severity, Reaction): Coded Allergies: ibuprofen (Unverified Allergy, Intermediate, RASH/HIVES, 11/28/17) Reported Meds & Prescriptions Reported Meds & Active Scripts Active Reported Metoprolol Tartrate 50 Mg Tab 50 Mg PO BID Amlodipine-Atorvastatin 10-10 Mg Tab 1 Tab PO DAILY Review of Systems Except as stated in HPI: all other systems reviewed are Neg General / Constitutional: No: Fever Eyes: No: Visual changes HENT: No: Headaches Cardiovascular: No: Chest Pain or Discomfort Respiratory: No: Shortness of Breath Gastrointestinal: No: Abdominal Pain Genitourinary: No: Dysuria Physical Exam Narrative GENERAL: Alert well appearing female. Lying comfortably on the stretcher. SKIN: Warm and dry. No rash HEAD: Normocephalic. EYES: No injection or drainage. NECK: Supple, trachea midline. No lymphadenopathy. CARDIOVASCULAR: Regular rate and rhythm without murmurs, gallops, or rubs. RESPIRATORY: Breath sounds equal bilaterally. No accessory muscle use. GASTROINTESTINAL: Abdomen soft, non-tender, nondistended. MUSCULOSKELETAL: No cyanosis, or edema. Normal strength and sensation in lower extremities. Patient is able to dorsiflex and plantarflex great toe. BACK: Tenderness over the left sacroiliac joint. Without obvious deformity. No CVA tenderness. Data Data Last Documented VS Vital Signs Date Time Temp Pulse Resp B/P (MAP) Pulse Ox O2 Delivery O2 Flow Rate FiO2 11/28/17 17:46 97.9 86 16 195/104 (134) 100 Orders Orders Orphenadrine Inj (Norflex Inj) (11/28/17 19:00) Acetaminophen (Tylenol) (11/28/17 19:00) MDM Medical Decision Making Medical Screen Exam Complete: Yes Emergency Medical Condition: Yes Differential Diagnosis Sciatica, lumbar strain, herniated disc Narrative Course 42-year-old female here with low back pain after twisting injury. On exam she has left paraspinous muscle tenderness. She is a normal neurologic exam. She was given a shot of Norflex and Tylenol. Patient reports symptom improvement. She is stable and ready for discharge Diagnosis Primary Impression: Lumbar strain Qualified Codes: S39.012A - Strain of muscle, fascia and tendon of lower back , initial encounter Referrals: Primary Care Physician Scripts Methylprednisolone Dosepak (Medrol Dosepak) 4 Mg Dspk 4 MG PO DIRECTED, #1 DSPK 0 Refills Per Pharmacist direction Prov: Reva Katz 11/28/17 Methocarbamol (Robaxin) 500 Mg Tab 500 MG PO TID for Muscle Spasm, #15 TAB 0 Refills Prov: Reva Katz 11/28/17 Disposition: 01 DISCHARGE HOME Condition: Stable Reva Katz Nov 28, 2017 19:26
[2017-11-28 19:34] VITALS: BP 163/96
== END 2017-11-28 19:36 | disposition home or self-care (01) ==
LOC: PHEFT 17:42
DX: S39.012A Strain of muscle, fascia and tendon of lower back, initial encounter (principal); X50.1XXA Overexertion from prolonged static or awkward postures, initial encounter; J45.909 Unspecified asthma, uncomplicated; I10 Essential (primary) hypertension
CPT/HCPCS: 96372; 99284; J2360

== ENCOUNTER 2018-01-10 15:17 | Emergency (ER) | payer OTHER ==
[~2018-01-10] VITALS: Ht 152.4 cm; Wt 79.2 kg
[~2018-01-10 15:17] MED LIST changes: +MEDR4PAK PO; +ROBA500T PO
[2018-01-10 15:21] VITALS: BP 168/105; PULSE 111; RESP 18; TEMP 97.9; O2SAT 100
[2018-01-10] MEDS ORDERED: ALBUAER3 INH (15:57)
[2018-01-10] MEDS ORDERED: SYMB80AE INH (15:57)
[2018-01-10] MEDS ORDERED: ALBU.5I NEB (15:57)
[2018-01-10] MEDS ORDERED: AMLO10TA2 PO ×2 (15:57→16:04)
[2018-01-10] MEDS ORDERED: METO100T PO ×2 (15:57→16:04)
[2018-01-10] MEDS ORDERED: METOPROLOL TARTRATE 100 MG TAB PO ONE (16:00)
--- NOTE | 2018-01-10 16:05 | PD ---
HPI Chief Complaint: Dizziness Time Seen by Provider: 15:30 Travel History International Travel<30 days: No Contact w/Intl Traveler<30days: No Traveled to known affect area: No History of Present Illness HPI This 42-year-old female is complaining of feeling lightheaded. She says it is worse when she is walking around. She describes it as a vague dizziness. She has not had a syncopal episode. She does have a history of hypertension and generally takes metoprolol 100 mg twice a day and amlodipine 10 mg daily. She says that her blood pressure has been well-controlled on these medications. She ran out of both medications about 2 days ago. She was scheduled to see her doctor in the next week or so. She is not having any pain. She is not short of breath PFSH Past Medical History Hx Anticoagulant Therapy: No Asthma: Yes Blood Disorders: No Cancer: No Cardiovascular Problems: Yes (HTN) Diabetes: No Diminished Hearing: No Endocrine: No Gastrointestinal Disorders: No Genitourinary: No Hypertension: Yes Immune Disorder: No Implanted Vascular Access Dvce: No Musculoskeletal: No Neurologic: No Psychiatric: No Reproductive: Yes (ENDOMETRIOSIS) Respiratory: Yes Immunizations Current: Yes Pneumonia: Yes ?: Not Menopausal: Yes : 3 Para: 3 Ovarian Cysts: Yes Dilation and Curettage (D&C): Yes Tubal Ligation: Yes Past Surgical History Section: Yes (X 2) Gynecologic Surgery: Yes (OVARIAN CYST REMOVED, csect, merna) Hysterectomy: Yes Social History Alcohol Use: No Tobacco Use: No (never) Substance Use: No Allergies-Medications (Allergen,Severity, Reaction): Coded Allergies: ibuprofen (Unverified Allergy, Intermediate, RASH/HIVES, 01/10/18) Reported Meds & Prescriptions Reported Meds & Active Scripts Active Reported Symbicort Inh (Budesonide/Formoterol Fumarate) 80-4.5 Mcg/Act Aero Unknown Dose INH Q12HR Albuterol Neb (Albuterol Sulfate) 2.5 Mg/0.5 Ml Neb 2.5 Mg NEB Q4HR NEB PRN Note: The Albuterol Sulfate Inhalation Solution is concentrated and must be diluted. Read complete instructions carefully before using. Proair Hfa 8.5 GM Inh (Albuterol Sulfate) 90 Mcg/Act Aer 2 Puff INH Q4-6H PRN 108 mcg/actuation Amlodipine (Amlodipine Besylate) 10 Mg Tab 10 Mg PO DAILY Metoprolol Tartrate 100 Mg Tab 100 Mg PO BID Review of Systems General / Constitutional: No: Fever, Chills Eyes: No: Diploplia, Blurred Vision HENT: Positive: Lightheadedness, No: Headaches, Neck Stiffness Cardiovascular: No: Chest Pain or Discomfort, Palpitations Respiratory: No: Cough, Shortness of Breath Gastrointestinal: No: Vomiting, Diarrhea Genitourinary: No: Urgency, Frequency Musculoskeletal: No: Myalgias, Arthralgias Skin: No Rash Neurologic: Positive: Dizziness Endocrine: No: Heat Intolerance, Cold Intolerance Hematologic/Lymphatic: No: Easy Bruising Physical Exam Narrative GENERAL: Well-developed female. Blood pressure is 150/90 SKIN: Focused skin assessment warm/dry. HEAD: Atraumatic. Normocephalic. EYES: Pupils equal and round. No scleral icterus. No injection or drainage. ENT: No nasal bleeding or discharge. Mucous membranes pink and moist. NECK: Trachea midline. No JVD. CARDIOVASCULAR: Regular rate and rhythm. No murmur appreciated. RESPIRATORY: No accessory muscle use. Clear to auscultation. Breath sounds equal bilaterally. GASTROINTESTINAL: Abdomen soft, non-tender, nondistended. Hepatic and splenic margins not palpable. MUSCULOSKELETAL: No obvious deformities. No clubbing. No cyanosis. No edema. NEUROLOGICAL: Awake and alert. No obvious cranial nerve deficits. Motor grossly within normal limits. Normal speech. PSYCHIATRIC: Appropriate mood and affect; insight and judgment normal. Data Data Last Documented VS Vital Signs Date Time Temp Pulse Resp B/P (MAP) Pulse Ox O2 Delivery O2 Flow Rate FiO2 01/10/18 15:36 103 18 100 Room Air 01/10/18 15:21 97.9 168/105 (126) Orders Orders Metoprolol Tartrate (Lopressor) (01/10/18 16:00) Amlodipine (Norvasc) (01/10/18 16:00) [facility] Medical Decision Making Medical Screen Exam Complete: Yes Emergency Medical Condition: Yes Medical Record Reviewed: Yes Differential Diagnosis Differential includes vertigo, tinnitus, hypertension Narrative Course I believe the patient's symptoms are secondary to running out of medications. I will get her restarted on her metoprolol and Norvasc. Diagnosis Primary Impression: Hypertension Scripts Amlodipine (Amlodipine) 10 Mg Tab 10 MG PO DAILY for Blood Pressure Management, #30 TAB 0 Refills Prov: Harley Charles MD 01/10/18 Metoprolol Tartrate (Metoprolol Tartrate) 100 Mg Tab 100 MG PO BID, #60 TAB 0 Refills Prov: Harley Charles MD 01/10/18 Disposition: 01 DISCHARGE HOME Condition: Stable Harley Charles MD Jan 10, 2018 16:04
[2018-01-10 16:25] VITALS: BP 152/87
== END 2018-01-10 16:27 | disposition home or self-care (01) ==
LOC: PHED 15:17
DX: I10 Essential (primary) hypertension (principal); J45.909 Unspecified asthma, uncomplicated
CPT/HCPCS: 99283

== ENCOUNTER 2018-04-08 02:04 | Observation (INO) | END 2018-04-08 17:28 | disposition home or self-care (01) | DX: R07.89 Other chest pain (principal); R51 Headache; M54.2 Cervicalgia; M79.651 Pain in right thigh; M79.652 Pain in left thigh; R11.0 Nausea; R61 Generalized hyperhidrosis; R94.31 Abnormal electrocardiogram [ECG] [EKG]; I10 Essential (primary) hypertension; J45.909 Unspecified asthma, uncomplicated; K44.9 Diaphragmatic hernia without obstruction or gangrene; Z79.899 Other long term (current) drug therapy | CPT/HCPCS: 71045; 71275; 74174; 78452; 80053; 82550; 82552; 84484; 85025; 85610; 85730; 93005; 93017; 99285; A9502; G0378; J2785; Q9967 ==